=== PATIENT | female | born 1965 | race Caucasian/White ===

== ENCOUNTER 2016-11-05 10:39 | Outpatient (CLI) ==
[2016-11-05 13:55] LABS: BASOPHILS # (AUTO) 0.1 K/uL (0-0.2); BASOPHILS % (AUTO) 1.6 % (0.0-3.0); EOSINOPHILS # (AUTO) 0.2 K/ul (0.0-0.7); EOSINOPHILS % (AUTO) 3.3 % (0.0-7.0); HEMATOCRIT 46.7 % (37.0-47.0); HEMOGLOBIN 15.1 g/dl (12.0-16.0); IMMATURE GRANULOCYTE % (AUTO) 0.2 % (0.0-5.0); LYMPHOCYTES # (AUTO) 1.3 K/uL (0.60-3.4); LYMPHOCYTES % (AUTO) 25.1 (10.0-50.0); MEAN CORPUSCULAR HEMOGLOBIN 29.4 pg (27.0-31.0); MEAN CORPUSCULAR HGB CONC 32.3 (31.8-35.4); MONOCYTES # (AUTO) 0.5 K/uL (0.4-2.0); MONOCYTES % (AUTO) 8.8 (0-10); NEUTROPHILS # (AUTO) 3.1 K/ul (2.0-6.9); PLATELET COUNT 303 10^3/uL (140-440); RED BLOOD COUNT 5.13 10^6/ul (4.20-5.40); WHITE BLOOD COUNT 5.09 K/ul (4.6-10.2)
[2016-11-05 15:35] LABS: ALBUMIN 4.5 g/dL (3.4-5.0); ALBUMIN/GLOBULIN RATIO 1.15; ANION GAP 18.8; BILIRUBIN,TOTAL 2.06 mg/dL (0.00-1.20); BUN/CREATININE RATIO 14.11; CALCIUM 10.2 mg/dL (8.2-10.2); CHOL/HDL RATIO 2.6 (4.5-5.5); CREATININE 0.85 mg/dL (0.60-1.30); POTASSIUM 3.8 mmol/L (3.5-5.10); TOTAL PROTEIN 8.4 g/dL (6.4-8.2)
== END 2016-11-05 10:40 | disposition home or self-care (01) ==
LOC: LAB 10:39
PROVIDERS: ATTEND Nurse Practitioner Family
DX: E78.5 Hyperlipidemia, unspecified (principal); E55.9 Vitamin D deficiency, unspecified; E66.9 Obesity, unspecified; I10 Essential (primary) hypertension
CPT/HCPCS: 36415; 80053; 80061; 82306; 84443; 85025

== ENCOUNTER 2017-05-25 07:52 | Outpatient (CLI) ==
--- NOTE | 2017-05-26 10:07 | MAMMO ---
EXAM: Digital screening mammogram with 3-D tomosynthesis and CAD HISTORY: Screening mammogram. COMPARISON: Mammogram 05/05/2016 and 04/04/2015 FINDINGS: There is scattered fibroglandular breast densities. There are benign right breast calcific ations. There is no new or suspicious calcification or nodule. There has been no significant interva l change. IMPRESSION: No new or suspicious nodule or calcification. Recommendation: Annual screening mammogram. BIRADS category II: Benign findings
== END 2017-05-25 07:53 | disposition home or self-care (01) ==
LOC: RAD 07:52
PROVIDERS: ATTEND Nurse Practitioner Family
DX: Z12.31 Encounter for screening mammogram for malignant neoplasm of breast (principal)
CPT/HCPCS: 77067

== ENCOUNTER 2017-11-12 09:30 | Outpatient (CLI) | END 2017-11-12 09:31 | disposition home or self-care (01) | LOC: RHC-LAB 09:30 | PROVIDERS: ATTEND Nurse Practitioner Family | DX: I10 Essential (primary) hypertension (principal); E78.5 Hyperlipidemia, unspecified; E55.9 Vitamin D deficiency, unspecified | CPT/HCPCS: 36415; 80053; 80061; 82306; 85025 ==

== ENCOUNTER 2017-11-25 07:18 | Outpatient (CLI) ==
--- NOTE | 2017-11-25 09:17 | US ---
EXAM: Ultrasound abdomen limited. HISTORY: Jaundice. COMPARISON: CT 05/20/2009. TECHNIQUE: Abdominal, real time with image documentation: limited (eg, single organ, quadrant, foll ow-up) FINDINGS: The liver demonstrates increased parenchymal echogenicity without intrahepatic biliary dil atation. Portal venous flow is normal in direction. The gallbladder is without shadowing stones, wa ll thickening or pericholecystic fluid. Common duct measures approximately 0.4 cm. Visualized porti ons of the pancreas are unremarkable. IMPRESSION: Fatty infiltration of the liver.
== END 2017-11-25 07:19 | disposition home or self-care (01) ==
LOC: RAD 07:18
PROVIDERS: ATTEND Nurse Practitioner Family
DX: R17 Unspecified jaundice (principal); K76.0 Fatty (change of) liver, not elsewhere classified

== ENCOUNTER 2017-12-22 16:22 | Outpatient (CLI) | END 2017-12-22 16:23 | disposition home or self-care (01) | LOC: RHC-LAB 16:22 | PROVIDERS: ATTEND Nurse Practitioner Family | DX: R17 Unspecified jaundice (principal) | CPT/HCPCS: 36415; 82247 ==

== ENCOUNTER 2018-05-24 09:17 | Outpatient (CLI) | END 2018-05-24 09:18 | disposition home or self-care (01) | LOC: RHC-LAB 09:17 | PROVIDERS: ATTEND Nurse Practitioner Family | DX: E78.5 Hyperlipidemia, unspecified (principal); I10 Essential (primary) hypertension; F41.9 Anxiety disorder, unspecified; E55.9 Vitamin D deficiency, unspecified | CPT/HCPCS: 36415; 80053; 80061; 82306; 84443 ==

== ENCOUNTER 2018-09-06 08:42 | Outpatient (CLI) | END 2018-09-06 08:43 | disposition home or self-care (01) | LOC: RHC-LAB 08:42 → LAB 08:43 | PROVIDERS: ATTEND Nurse Practitioner Family | DX: I10 Essential (primary) hypertension (principal); R79.89 Other specified abnormal findings of blood chemistry; E78.5 Hyperlipidemia, unspecified; E55.9 Vitamin D deficiency, unspecified | CPT/HCPCS: 36415; 80053; 80061; 82306; 84443; 85025 ==

== ENCOUNTER 2019-03-01 14:15 | Outpatient (POV) | END 2019-03-01 17:00 | LOC: OUTPT 14:15 | PROVIDERS: ATTEND Otolaryngology | DX: H90.5 Unspecified sensorineural hearing loss (principal) ==